=== PATIENT | female | born 1995 | race Hispanic/Latino ===

== ENCOUNTER 2020-06-08 19:43 | Emergency (ER) | payer SELFPAY ==
[~2020-06-08] VITALS: Ht 144.8 cm; Wt 68.0 kg
[2020-06-08] MEDS ORDERED: HYDROCODONE/APAP 5MG-325MG TAB PO STA (19:47)
--- NOTE | 2020-06-08 19:52 | Emergency Department Note ---
History of Present Illnes History of Present Illness Chief Complaint: Extremity Trauma/Pain History of Present Illness This is a 24 year old female presents to the ED for r knee pain following a soft ball game . Historian: Patient, Family Member Arrival Mode: Car Onset (how long ago): hour(s) Location: right medial knee Quality: sharp Radiation: Reports extremity Onset quality: sudden Duration (how long): hour(s) Timing of current episode: constant Progression: unchanged Chronicity: new Context: Reports trauma/injury; Denies recent illness, Denies recent surgery, Denies recent immobilization, Denies recent travel, Denies new medications, Denies hx of DVT/PE, Denies non- compliance w/ medications, Denies other Relieving factors: immobilization, rest Exacerbating factors: movement Associated symptoms: Denies denies other symptoms, Denies confusion, Denies chest pain, Denies cough, Denies diaphoresis, Denies fever/chills, Denies headaches, Denies loss of appetite, Denies malaise, Denies nausea/vomiting, Denies rash, Denies seizure, Denies shortness of breath, Denies syncope, Denies weakness, Denies other Past Medical/Family History Physician Review I have reviewed the patient's past medical and family history. Any updates have been documented here. Past Medical History Recent Fever: No Clinical Suspicion of Infectio: No New/Unexplained Change in Ment: No Past Medical History: None Past Surgical History: None Social History Smoking Cessation: Never Smoker Any Illegal Drug Use: No Review of Systems Review of Systems Constitutional: Reports no symptoms EENTM: Reports no symptoms Cardiovascular: Reports no symptoms Respiratory: Reports no symptoms Gastrointestinal: Reports no symptoms Genitourinary: Reports no symptoms Musculoskeletal: Reports joint pain Integumentary: Reports no symptoms Neurological: Reports no symptoms Psychological: Reports no symptoms Endocrine: Reports no symptoms Hematological/Lymphatic: Reports no symptoms Physical Exam Related Data Allergies: Coded Allergies: No Known Allergies (Unverified , 06/08/20) Triage Vital Signs Vital Signs Date Time Temp Pulse Resp B/P (MAP) Pulse Ox O2 Delivery O2 Flow Rate FiO2 06/08/20 19:50 99.0 80 20 134/98 100 Room Air Vital signs reviewed: Yes Physical Exam CONSTITUTIONAL Constitutional: Present well-developed, Present well-nourished HENT HENT: Present normocephalic, Present atraumatic, Present oropharynx clear/moist, Present nose normal HENT L/R: Present left ext ear normal, Present right ext ear normal EYES Eyes: Reports PERRL, Reports conjunctivae normal NECK Neck: Present ROM normal PULMONARY Pulmonary: Present effort normal, Present breath sounds normal CARDIOVASCULAR Cardiovascular: Present regular rhythm, Present heart sounds normal, Present capillary refill normal, Present normal rate GASTROINTESTINAL Abdominal: Present soft, Present nontender, Present bowel sounds normal GENITOURINARY Genitourinary: Present exam deferred SKIN Skin: Present warm, Present dry MUSCULOSKELETAL Musculoskeletal: Present tenderness (medial aspect R knee); Absent ROM normal, Absent edema, Absent deformity, Absent swelling NEUROLOGICAL Neurological: Present alert, Present oriented x 3, Present no gross motor or sensory deficits PSYCHOLOGICAL Psychological: Present mood/affect normal, Present judgement normal Results Imaging Imaging results reviewed: Yes Impressions [place] [id number] Patient Name: CARLOZ JARAMILLO MR #: [id number] : 1995 Age/Sex: 24/F Req #: [id number] Adm Physician: Ordered by: MOISÉS GASPAR DO Report #: [id number] Location: ER Room/Bed: Procedure: [id number] DX/KNEE RIGHT THREE VIEWS Exam Date: 06/08/20 Exam Time: 2019 REPORT STATUS: Signed KNEE RIGHT THREE VIEWS - Multiple views HISTORY: knee pain COMPARISON: None available. FINDINGS: Bones: No acute displaced fracture. Osseous alignment is within normal limits. Joints: The joint spaces are well-maintained. Soft tissues: The soft tissues appear unremarkable. IMPRESSION: No acute radiographic abnormality. Signed by: Jonatan Rosario MD on 06/08/2020 8:56 PM Dictated By: JONATAN ROSARIO MD 55 Transcribed By: MOLLY on 06/08/202055 COPY TO: MOISÉS GASPAR DO~ Assessment & Plan Medical Decision Making MDM Diff Dx : knee dislocation, sprain, strain, Meniscal tear, ligamental tear Assessment & Plan Final Impression: (1) Right knee pain MOISÉS GASPAR DO Jun 08, 2020 19:51
--- NOTE | 2020-06-08 20:59 | Diagnostic Imaging Report ---
KNEE RIGHT THREE VIEWS - Multiple views HISTORY: knee pain COMPARISON: None available. FINDINGS: Bones: No acute displaced fracture. Osseous alignment is within normal limits. Joints: The joint spaces are well-maintained. Soft tissues: The soft tissues appear unremarkable. IMPRESSION: No acute radiographic abnormality. Signed by: Jonatan Rosario MD on 06/08/2020 8:56 PM
--- NOTE | 2020-06-08 21:25 | NUR ---
Crutch teaching provided, pt verbalizes understanding & return demo with walking done. For discharge to home.
[2020-06-08 21:32] VITALS: BP 124/85
== END 2020-06-08 21:30 | disposition home or self-care (01) ==
LOC: ER 20:05
DX: M25.561 Pain in right knee (principal); Y93.64 Activity, baseball; Y92.320 Baseball field as the place of occurrence of the external cause
CPT/HCPCS: 99283